=== PATIENT | male | born 1965 | race Caucasian/White ===

== ENCOUNTER → 2016-06-24 | Outpatient (CLI) | payer BC ==
[~2016-06-24] MED LIST: MULT-890 PO; PSYL1PAC10 PO; TRAM-25 PO
[2016-06-24 16:06] LABS: MEAN CORPUSCULAR HEMOGLOBIN 31.3 PG (26.0-34.0); MEAN CORPUSCULAR HGB CONC 33.9 g/dL (31.0-37.0); MEAN CORPUSCULAR VOLUME 92 FL (80-100); MEAN PLATELET VOLUME 10.1 FL (6.0-9.5); PLATELET COUNT 186 10^3uL (150-450)
[2016-06-24 16:27] LABS: ALBUMIN 4.6 g/dL (3.4-5.0); ANION GAP 15.6 MEQ/L (3-15); MAGNESIUM* 2.2 mg/dL (1.6-2.3); TOTAL PROTEIN 7.8 g/dL (6.4-8.5)
[2016-06-24 17:06] LABS: BAND NEUTROPHILS % 1 % (0-6); EOSINOPHILS % 3 % (0-4); LYMPHOCYTES # 1.5 #; MONOCYTES # 0.5 #; MONOCYTES % 9 % (3-11); RBC MORPH NORMAL (NORMAL); SEGMENTED NEUTROPHILS % 63 % (51-67); TOTAL CELLS COUNTED 100
== END ==
LOC: LAB 15:44
PROVIDERS: ATTEND Internal Medicine Hematology & Oncology
DX: C18.7 Malignant neoplasm of sigmoid colon (principal)
CPT/HCPCS: 36415; 80053; 82378; 83615; 83735; 84100; 85007; 85027

== ENCOUNTER 2016-07-26 06:23 | Day surgery (SDC) | payer BC ==
[~2016-07-26] VITALS: Ht 193 cm; Wt 125.0 kg
[~2016-07-26 06:23] MED LIST changes: +LACTATED RINGERS 1,000 ML IV SCH; -MULT-890 PO; -PSYL1PAC10 PO; +SODIUM CHLORIDE FLUSH 3 ML SYR IV PRN; -TRAM-25 PO
[2016-07-26 06:32] VITALS: BP 140/89
[2016-07-26] MEDS ORDERED: PROPOFOL 20 ML IV ONE ×2 (07:07→07:22)
[2016-07-26] MEDS ORDERED: MIDAZOLAM 2 MG/2 ML (VERSED) VIAL ONE (07:07)
[2016-07-26] MEDS ORDERED: ALFENTANIL 500 MCG/ML (ALFENTA) 5 ML AMP IV ONE (07:07)
[2016-07-26 08:05] VITALS: BP 156/101
[2016-07-26 08:23] VITALS: BP 127/79
== END 2016-07-26 08:29 | disposition home or self-care (01) ==
LOC: ASC 06:23
PROVIDERS: ATTEND Surgery
DX: D12.5 Benign neoplasm of sigmoid colon (principal); Z85.038 Personal history of other malignant neoplasm of large intestine; E66.9 Obesity, unspecified; Z68.34 Body mass index [BMI] 34.0-34.9, adult
CPT/HCPCS: 45380; J2250; J7120